=== PATIENT | female | born 1980 | race Caucasian/White ===

== ENCOUNTER → 2023-07-12 | Outpatient (CLI) | payer BC ==
--- NOTE | 2023-07-12 09:57 | MM ---
Reason for Exam: Clinical finding. Last mammogram was performed 1 year(s) and 6 month(s) ago. Indicated Problems: Pain of the right side (Focal) : comes and goes...at nipple. Patient History: Menarche at age 14. First Full-Term at age 32. Late child-bearing (after 31). Premenopausal. Patient has history of breast feeding. Currently using Hormonal Contraceptives, starting at age 35. Risk Values: Sallie 5 year model risk: 0.8%. NCI Lifetime model risk: 13.5%. Prior Study Comparison: 01/11/2022 Bilateral Screening Mammogram, [place]. Tissue Density: There are scattered fibroglandular densities. Findings: Analyzed By CAD. A few scattered areas of asymmetric density remain unchanged from outside 2021 prior. No significant change from prior exams. Overall Assessment: Incomplete: need additional imaging evaluation, BI-RAD 0 Management: Diagnostic Breast Ultrasound of the right breast. Subareolar and periareolar for pain. Electronically signed and approved by: Tamiko Bahena M.D. Radiologist
--- NOTE | 2023-07-12 11:41 | USB ---
Reason for Exam: Clinical finding. Patient History: Menarche at age 14. First Full-Term at age 32. Late child-bearing (after 31). Premenopausal. Patient has history of breast feeding. Currently using Hormonal Contraceptives, starting at age 35. Risk Values: Sallie 5 year model risk: 0.8%. NCI Lifetime model risk: 13.5%. Technique: Method: Targeted. Prior Study Comparison: 01/11/2022 Bilateral Screening Mammogram, [place]. Findings: The periareolar of the right breast, the axilla of the right breast and the retroareolar of the right breast were scanned. Targeted ultrasound subareolar and periareolar right breast including scanning of the axilla. Scanning was performed for patients pain. No solid or cystic lesion, duct ectasia, or axillary adenopathy. Dense subareolar tissue is noted. Overall Assessment: Benign, BI-RAD 2 Management: Screening Mammogram of both breasts in 1 year. Further clinical management of patient's right-sided pain. A clinical breast exam by your physician is recommended on an annual basis and results should be correlated with mammographic findings. This exam should not preclude additional follow-up of suspicious palpable abnormalities. Results were given to the patient verbally at the time of exam. Electronically signed and approved by: Tamiko Bahena M.D. Radiologist
== END | disposition home or self-care (01) ==
LOC: RADMAMWWP 09:08
PROVIDERS: ATTEND Obstetrics & Gynecology
DX: N64.4 Mastodynia (principal); R92.323 Mammographic fibroglandular density, bilateral breasts
CPT/HCPCS: 77062; 77066